=== PATIENT | male | born 1965 | race Caucasian/White ===

== ENCOUNTER 2021-08-19 14:25 | Emergency (ER) | payer BC ==
[2021-08-19] MEDS ORDERED: Sodium Chloride 0.9% 1,000 ML IV ONE (15:03)
--- NOTE | 2021-08-19 15:07 | EDM.PDOC ---
ED [facility] GENERAL MEDICAL PROBLEM - General Chief Complaint: Cardiovascular Problem Stated Complaint: RHB SOB DIZZY Time Seen by Provider: 08/19/21 14:40 Source of Information: Reports: Patient History Limitations: Reports: No Limitations - History of Present Illness INITIAL COMMENTS - FREE TEXT/NARRATIVE: Patient is a 55-year-old male presenting to the emergency room with a chief complaint of palpitations. Onset of palpitations about 1 hour prior to arrival. Patient was at rest eating pistachios when palpitations started. Patient reports some slight dizziness but denied any chest pain or shortness of breath. Palpitations of continued and have not worsened or improved. Patient has no known prior history of atrial fibrillation. No syncopal episodes reported. For the past few days, patient states he has been feeling well. Patient does report daily alcohol use, reportedly drinking several beers or several mixed drinks each evening. Patient takes baby aspirin but no anticoagulation. Patient has past history of hypertension, hypercholesterolemia but denies diabetes history, PA, stroke. - Related Data Allergies Allergy/AdvReac Type Severity Reaction Status Date / Time No Known Allergies Allergy Verified 08/19/21 14:36 Home Meds: Home Meds Dabigatran [Pradaxa] 150 mg PO BID 21 Days #42 cap 08/19/21 [Rx] Pantoprazole 20 mg PO DAILY 08/19/21 [History] Pravastatin [Pravachol] 40 mg PO DAILY 08/19/21 [History] Telmisartan 80 mg PO DAILY 08/19/21 [History] amLODIPine [Norvasc] 10 mg PO DAILY 08/19/21 [History] Past Medical History Cardiovascular History: Reports: Afib, Heart Murmur, High Cholesterol, Hypertension Endocrine/Metabolic History: Reports: Obesity/BMI 30+ - Past Surgical History Musculoskeletal Surgical History: Reports: Shoulder Surgery Social & Family History - Caffeine Use Caffeine Use: Reports: Coffee - Recreational Drug Use Recreational Drug Use: No ED ROS GENERAL - Review of Systems Review Of Systems: See Below Free Text/Narrative/Comment: In addition to that documented in the HPI above, the additional ROS was obtained: Constitutional: Denies fevers or chills Eyes: Denies vision changes ENMT: Denies sore throat CV: Denies chest pain Resp: Denies SOB GI: Denies vomiting or diarrhea : Denies painful urination MSK: Denies recent trauma Skin: Denies new rashes Neuro: Denies new numbness or tingling or weakness Endocrine: Denies unexpected weight loss Heme: Denies bleeding disorders ED EXAM, GENERAL - Physical Exam Exam: See Below Free Text/Narrative:: I have reviewed the triage vital signs Const: Well nourished, well developed, appears stated age Eyes: Pupils Equal and reactive to light bilaterally, no conjunctival injection HENT: No signs of trauma or swelling, Neck supple without meningismus CV: Tachycardia with irregular rhythm, Warm, well-perfused extremities RESP: Unlabored respiratory effort GI: soft, non-tender, non-distended, no masses MSK: No gross deformities appreciated Skin: Warm, dry. 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 Sensation and motor function of extremities grossly intact. Psych: Appropriate mood and affect. ED CARDIOLOGY PROCEDURES - Cardioversion Time of Cardioversion: 16:55 Indication: Atrial Fibrillation with RVR Patient Counseled: Yes Informed Consent Obtained: Yes Preparation: IV Access, Airway Management Equipment, Supplemental Oxygen, Monitor Pre-Procedure Sedation: Etomidate (20 mg) Cardioversion Energy: Other (120J Sync) Mode: Biphasic Successful: Yes Number of Attempts: 1 Patient Condition Post Cardioversion: Improved Post Cardioversion EKG Reviewed: Yes (Normal sinus rhythm) #1 Interpretation EKG Date: 08/19/21 Time: 14:33 Rhythm: A-Fib Rate (Beats/Min): 131 [place]: LAD-Left [place] Deviation P-Wave: Absent QRS: Normal ST-T: Normal QT: Normal Comparison: NA - No Prior EKG EKG Interpretation Comments: afib with RVR, abnormal EKG Course - Vital Signs Last Recorded V/S: Last Vital Signs Temp 36.4 C 08/19/21 14:32 Pulse 146 H 08/19/21 14:32 Resp 18 08/19/21 14:32 BP 120/107 H 08/19/21 14:32 Pulse Ox 95 08/19/21 14:32 - Orders/Labs/Meds Labs: Laboratory Tests 08/19/21 08/19/21 08/19/21 Range/Units 15:00 15:00 15:00 WBC 6.76 (4.23-9.07) K/mm3 RBC 4.74 (4.63-6.08) M/mm3 Hgb 15.2 (13.7-17.5) gm/dl Hct 44.6 (40.1-51.0) % MCV 94.1 H (79.0-92.2) fl MCH 32.1 (25.7-32.2) pg MCHC 34.1 (32.2-35.5) g/dl RDW Std Deviation 44.7 H (35.1-43.9) fL Plt Count 212 (163-337) K/mm3 MPV 9.4 (9.4-12.3) fl Neut % (Auto) 42.6 (34.0-67.9) % Lymph % (Auto) 45.3 (21.8-53.1) % [place] % (Auto) 9.6 (5.3-12.2) % Eos % (Auto) 1.8 (0.8-7.0) Baso % (Auto) 0.6 (0.1-1.2) % Neut # (Auto) 2.88 (1.78-5.38) K/mm3 Lymph # (Auto) 3.06 (1.32-3.57) K/mm3 [place] # (Auto) 0.65 (0.30-0.82) K/mm3 Eos # (Auto) 0.12 (0.04-0.54) K/mm3 Baso # (Auto) 0.04 (0.01-0.08) K/mm3 D-Dimer, Quantitative < 0.19 L (0.19-0.50) mg/L Sodium 141 (136-145) mEq/L Potassium 3.8 (3.5-5.1) mEq/L Chloride 105 (98-107) mEq/L Carbon Dioxide 26 (21-32) mEq/L Anion Gap 13.8 (5-15) BUN 19 H (7-18) mg/dL Creatinine 1.2 (0.7-1.3) mg/dL Est Cr Clr Drug Dosing 65.79 mL/min Estimated GFR (MDRD) > 60 (>60) mL/min BUN/Creatinine Ratio 15.8 (14-18) Glucose 113 H (70-99) mg/dL Calcium 8.7 (8.5-10.1) mg/dL Total Bilirubin 0.3 (0.2-1.0) mg/dL AST 28 (15-37) U/L ALT 38 (16-63) U/L Alkaline Phosphatase 42 L (46-116) U/L Total Protein 7.8 (6.4-8.2) g/dl Albumin 3.9 (3.4-5.0) g/dl Globulin 3.9 gm/dL Albumin/Globulin Ratio 1.0 (1-2) TSH 3rd Generation 1.825 (0.358-3.74) uIU/mL Meds: Medications Discontinued Medications Generic Name Dose Route Start Last Admin Trade Name Anibal PRN Reason Stop Dose Admin Dabigatran 150 mg 08/19/21 17:16 Dabigatran 75 Mg Cap PO 08/19/21 17:17 ONETIME ONE Etomidate 20 mg 08/19/21 16:20 08/19/21 16:48 Etomidate 2 Mg/Ml 20 Ml Sdv IVPUSH 08/19/21 16:21 20 mg ONETIME ONE Administration Sodium Chloride 1,000 mls @ 1,000 mls/hr 08/19/21 15:03 08/19/21 15:39 Normal Saline IV 08/19/21 16:02 1,000 mls/hr ONETIME ONE Administration Departure - Departure Time of Disposition: 17:26 Disposition: Home, Self-Care 01 Clinical Impression: Atrial fibrillation Prescriptions: Dabigatran [Pradaxa] 150 mg PO BID 21 Days #42 cap Instructions: Atrial Fibrillation Referrals: PCP,None [Primary Care Provider] - Forms: ED Department Discharge Sepsis Event Note (ED) - Evaluation Sepsis Screening Result: No Definite Risk - Focused Exam Vital Signs: Vital Signs Temp Pulse Resp BP Pulse Ox 08/19/21 14:32 36.4 C 146 H 18 120/107 H 95 - Assessment/Plan Assessment:: Patient is a 55-year-old male presenting to the emergency room with a chief complaint of palpitations. On arrival, patient had a heart rate in the 140s that appeared to be irregularly irregular. His EKG was reviewed demonstrating atrial fibrillation with rapid ventricular response with a rate in the 130s. Patient did continue to maintain a normal blood pressure was not in any sort of respiratory distress or demonstrating any chest pain. Laboratory studies were ordered to evaluate for presence of anemia, electrolyte abnormality, pulmonary embolism all of which were within normal limits. At this point, we had detailed discussion with patient regarding risk and benefits of rate control with IV and oral medications versus electrical cardioversion. Given patient's symptoms only several hours with an onset of it was reasonable to attempt electrical cardioversion and patient agreed to have this procedure done. Electrocardioversion was completed with success. Patient did have apneic spell which required bag valve mask ventilation for less than 1 minute. Patient recovered appropriately and was observed in the emergency room. Mental status returned to baseline. Patient has a [id number] score of 1 due to hypertension. I did recommend anticoagulation for several weeks until he is able to follow-up with cardiology for further management. Return precautions discussed. All questions were addressed and answered. Patient agrees with plan of care.
--- NOTE | 2021-08-19 16:00 | CR ---
Chest: Portable view of the chest was obtained. Comparison: No prior chest imaging is available. Heart size and mediastinum are normal. Lungs are clear with no acute parenchymal change. Bony structures show nothing acute. Impression: 1. Nothing acute is seen on portable chest x-ray. Diagnostic code #1
[2021-08-19] MEDS ORDERED: Etomidate 2 MG/ML 20 ML SDV IVPUSH ONE (16:20)
[2021-08-19] MEDS ORDERED: Dabigatran 75 MG Cap PO ONE (17:16)
== END 2021-08-19 17:58 | disposition home or self-care (01) ==
LOC: JD.ED 14:25
DX: I48.91 Unspecified atrial fibrillation (principal); E78.00 Pure hypercholesterolemia, unspecified; I10 Essential (primary) hypertension; E66.9 Obesity, unspecified; Z68.33 Body mass index [BMI] 33.0-33.9, adult
CPT/HCPCS: 36415; 71045; 80053; 84443; 85025; 85379; 92960; 93005; 99285; A9270; J3490; J7030